=== PATIENT | female | born 1965 | race Caucasian/White ===

== ENCOUNTER 2018-01-28 15:21 | Emergency (ER) | payer OTHER ==
[~2018-01-28] VITALS: Ht 167.6 cm; Wt 78.0 kg
[2018-01-28] MEDS ORDERED: FLAGYL500 MG PO (15:44)
[2018-01-28] MEDS ORDERED: DOXYCYCLINE 10100 MG PO (15:44)
[2018-01-28 16:16] VITALS: BP 135/79
== END 2018-01-28 16:17 | disposition home or self-care (01) ==
LOC: ER 15:21
DX: S41.151A Open bite of right upper arm, initial encounter (principal); Z88.0 Allergy status to penicillin; Z77.22 Contact with and (suspected) exposure to environmental tobacco smoke (acute) (chronic); W54.0XXA Bitten by dog, initial encounter; Y93.89 Activity, other specified; Y92.89 Other specified places as the place of occurrence of the external cause; Y99.8 Other external cause status